=== PATIENT | female | born 1965 | race Caucasian/White ===

== ENCOUNTER 2021-03-09 08:27 | Inpatient (IN) | payer BC ==
[~2021-03-09] VITALS: Ht 160 cm; Wt 115.0 kg
[2021-03-09 09:11] LABS: HEMOGLOBIN 14.4 gm/dl (12.3-15.3); RED BLOOD COUNT 4.95 M/UL (4.00-5.10); WHITE BLOOD COUNT 5.6 K/UL (4.5-11.0)
[2021-03-09 09:32] LABS: BUN/CREATININE RATIO 18 (0-10)
[2021-03-09] MEDS ORDERED: JANUVIA 100 MG100 MG PO (10:56)
[2021-03-09] MEDS ORDERED: METFORMIN HCL1000 MG PO (10:56)
[2021-03-09] MEDS ORDERED: NORVASC10 MG PO (10:57)
[2021-03-09] MEDS ORDERED: CRESTOR5 MG PO (10:57)
[2021-03-09] MEDS ORDERED: HYDROCHLOROTHIA25 MG PO (10:57)
[2021-03-09] MEDS ORDERED: DRISDOL1250 MCG PO (10:57)
[2021-03-09] MEDS ORDERED: NITROSTAT0.4 MG SL (10:58)
[2021-03-09] MEDS ORDERED: ASPIRIN EC81 MG PO (12:51)
--- NOTE | 2021-03-09 18:54 | NUR ---
PT ARRIVED TO ICU AT 1809. MONITORING EQUIPTMENT ATTATCHET. VITALS STABLE AT THIS TIME. AC CATHETER INSERTED, PT TOLERATED WELL. NO SIGNS OF DISTRESS AT THIS TIME. WILL CONTINUE TO MONITOR.
[2021-03-10 09:45] LABS: HEMOGLOBIN 13.5 gm/dl (12.3-15.3); RED BLOOD COUNT 4.52 M/UL (4.00-5.10)
[2021-03-10 09:53] LABS: WHITE BLOOD COUNT 2.6 K/UL (4.5-11.0)
[2021-03-10 10:07] LABS: BUN/CREATININE RATIO 19 (0-10)
[2021-03-11 08:12] LABS: HEMOGLOBIN 12.8 gm/dl (12.3-15.3); RED BLOOD COUNT 4.4 M/UL (4.00-5.10)
[2021-03-11 08:16] LABS: WHITE BLOOD COUNT 3.3 K/UL (4.5-11.0)
[2021-03-11 08:31] LABS: BUN/CREATININE RATIO 23 (0-10)
[2021-03-12 07:09] LABS: HEMOGLOBIN 12.9 gm/dl (12.3-15.3); RED BLOOD COUNT 4.33 M/UL (4.00-5.10); WHITE BLOOD COUNT 3.4 K/UL (4.5-11.0)
[2021-03-12 07:32] LABS: BUN/CREATININE RATIO 22 (0-10)
[2021-03-12 13:10] LABS: ORGANISM ID Not indicated. (.); SPECIMEN SOURCE Urine (.); STREPTOCOCCUS PNEUMONIAE AG Negative (Negative)
[2021-03-13 05:00] LABS: HEMOGLOBIN 13.1 gm/dl (12.3-15.3); RED BLOOD COUNT 4.39 M/UL (4.00-5.10)
[2021-03-13 05:02] LABS: WHITE BLOOD COUNT 4.9 K/UL (4.5-11.0)
[2021-03-13 05:20] LABS: BUN/CREATININE RATIO 20 (0-10)
[2021-03-14 06:46] LABS: HEMOGLOBIN 13.5 gm/dl (12.3-15.3); RED BLOOD COUNT 4.52 M/UL (4.00-5.10); WHITE BLOOD COUNT 5.4 K/UL (4.5-11.0)
[2021-03-14 07:33] LABS: BUN/CREATININE RATIO 24 (0-10)
[2021-03-15 06:25] LABS: HEMOGLOBIN 13.9 gm/dl (12.3-15.3); RED BLOOD COUNT 4.67 M/UL (4.00-5.10); WHITE BLOOD COUNT 4.7 K/UL (4.5-11.0)
[2021-03-15 07:25] LABS: BUN/CREATININE RATIO 23 (0-10)
[2021-03-16 04:08] LABS: HEMOGLOBIN 13.3 gm/dl (12.3-15.3); RED BLOOD COUNT 4.47 M/UL (4.00-5.10); WHITE BLOOD COUNT 4.9 K/UL (4.5-11.0)
[2021-03-16 04:27] LABS: BUN/CREATININE RATIO 22 (0-10)
[2021-03-17 10:04] LABS: HEMOGLOBIN 13.8 gm/dl (12.3-15.3); RED BLOOD COUNT 4.61 M/UL (4.00-5.10)
[2021-03-17 10:06] LABS: WHITE BLOOD COUNT 7.7 K/UL (4.5-11.0)
[2021-03-17 11:16] LABS: BUN/CREATININE RATIO 21 (0-10)
[2021-03-18 05:47] LABS: HEMOGLOBIN 15.6 gm/dl (12.3-15.3)
[2021-03-18 05:55] LABS: RED BLOOD COUNT 5.1 M/UL (4.00-5.10); WHITE BLOOD COUNT 20.9 K/UL (4.5-11.0)
[2021-03-19 04:57] LABS: HEMOGLOBIN 14.9 gm/dl (12.3-15.3); RED BLOOD COUNT 4.91 M/UL (4.00-5.10); WHITE BLOOD COUNT 19.1 K/UL (4.5-11.0)
[2021-03-20 05:26] LABS: WHITE BLOOD COUNT 15.4 K/UL (4.5-11.0)
[2021-03-20 05:44] LABS: RED BLOOD COUNT 4.24 M/UL (4.00-5.10)
[2021-03-21 05:17] LABS: HEMOGLOBIN 12.3 gm/dl (12.3-15.3); RED BLOOD COUNT 4.06 M/UL (4.00-5.10); WHITE BLOOD COUNT 14.1 K/UL (4.5-11.0)
[2021-03-22 05:06] LABS: HEMOGLOBIN 10.9 gm/dl (12.3-15.3)
[2021-03-22 05:10] LABS: RED BLOOD COUNT 3.63 M/UL (4.00-5.10); WHITE BLOOD COUNT 6.6 K/UL (4.5-11.0)
[2021-03-23 05:09] LABS: HEMOGLOBIN 9.7 gm/dl (12.3-15.3)
[2021-03-23 05:10] LABS: RED BLOOD COUNT 3.24 M/UL (4.00-5.10); WHITE BLOOD COUNT 3.8 K/UL (4.5-11.0)
[2021-03-24 05:03] LABS: HEMOGLOBIN 9.3 gm/dl (12.3-15.3); RED BLOOD COUNT 3.04 M/UL (4.00-5.10); WHITE BLOOD COUNT 4.3 K/UL (4.5-11.0)
[2021-03-25 05:14] LABS: HEMOGLOBIN 8.9 gm/dl (12.3-15.3); RED BLOOD COUNT 2.92 M/UL (4.00-5.10); WHITE BLOOD COUNT 3.7 K/UL (4.5-11.0)
[2021-03-26 06:15] LABS: HEMOGLOBIN 8.5 gm/dl (12.3-15.3); RED BLOOD COUNT 2.79 M/UL (4.00-5.10); WHITE BLOOD COUNT 4.2 K/UL (4.5-11.0)
[2021-03-27 04:30] LABS: HEMOGLOBIN 8.8 gm/dl (12.3-15.3); RED BLOOD COUNT 2.87 M/UL (4.00-5.10); WHITE BLOOD COUNT 3.9 K/UL (4.5-11.0)
[2021-03-28 05:50] LABS: HEMOGLOBIN 9.4 gm/dl (12.3-15.3); RED BLOOD COUNT 3.13 M/UL (4.00-5.10)
[2021-03-28 05:56] LABS: WHITE BLOOD COUNT 5.2 K/UL (4.5-11.0)
[2021-03-29 04:55] LABS: HEMOGLOBIN 9.6 gm/dl (12.3-15.3); RED BLOOD COUNT 3.13 M/UL (4.00-5.10); WHITE BLOOD COUNT 5.3 K/UL (4.5-11.0)
--- NOTE | 2021-03-29 19:28 | NUR ---
03/29/211913 THE PT AND DAUGHTER CALLED TO CHANGE CODE STATUS FROM DNR TO FULL CODE. ORDER WAS CHANGED IN [facility] AND DR. MEMBRENO WAS NOTIFIED.
[2021-03-30 04:58] LABS: HEMOGLOBIN 9.5 gm/dl (12.3-15.3); RED BLOOD COUNT 3.12 M/UL (4.00-5.10); WHITE BLOOD COUNT 4.5 K/UL (4.5-11.0)
[2021-03-30 05:21] LABS: BUN/CREATININE RATIO 40 (0-10)
[2021-03-31 04:29] LABS: HEMOGLOBIN 9.9 gm/dl (12.3-15.3); RED BLOOD COUNT 3.21 M/UL (4.00-5.10); WHITE BLOOD COUNT 5.3 K/UL (4.5-11.0)
[2021-03-31 04:54] LABS: BUN/CREATININE RATIO 41 (0-10)
[2021-04-01 05:12] LABS: HEMOGLOBIN 9.5 gm/dl (12.3-15.3); RED BLOOD COUNT 3.18 M/UL (4.00-5.10)
[2021-04-01 05:48] LABS: BUN/CREATININE RATIO 37 (0-10)
[2021-04-02 04:11] LABS: HEMOGLOBIN 10.5 gm/dl (12.3-15.3); RED BLOOD COUNT 3.44 M/UL (4.00-5.10); WHITE BLOOD COUNT 7.7 K/UL (4.5-11.0)
[2021-04-02 04:30] LABS: BUN/CREATININE RATIO 46 (0-10)
--- NOTE | 2021-04-02 07:39 | NUR ---
UPDATED DR. LAWSON ON PATIENT VENT SETTINGS. FiO2 IS 80% AND PEEP OF 14. DR. LAWSON SAID HE WOULD RESCHEDULE THE TRACH PLACEMENT TO A LATER DATE DUE TO HIGH VENT SETTINGS.
[2021-04-03 05:11] LABS: HEMOGLOBIN 8.9 gm/dl (12.3-15.3)
[2021-04-03 05:28] LABS: BUN/CREATININE RATIO 38 (0-10); RED BLOOD COUNT 2.96 M/UL (4.00-5.10); WHITE BLOOD COUNT 5.4 K/UL (4.5-11.0)
[2021-04-03 17:08] LABS: HEPARIN INDUCED PLATELET AB 0.181 OD (0.000-0.400)
[2021-04-04 03:36] LABS: HEMOGLOBIN 10.7 gm/dl (12.3-15.3)
[2021-04-04 03:40] LABS: RED BLOOD COUNT 3.52 M/UL (4.00-5.10); WHITE BLOOD COUNT 8.7 K/UL (4.5-11.0)
[2021-04-04 04:00] LABS: BUN/CREATININE RATIO 34 (0-10)
--- NOTE | 2021-04-04 11:24 | NUR ---
PATIENT IS BEING CONSIDERED FOR TRACH PLACEMENT TODAY BUT NOT CERTAIN YET. DR. MEMBRENO ORDERED TO MAINTIAN NPO STATUS AND HOLD BLOOD THINNERS UNTIL DECISION IS MADE.
[2021-04-05 07:50] LABS: HEMOGLOBIN 8.8 gm/dl (12.3-15.3); WHITE BLOOD COUNT 8.2 K/UL (4.5-11.0)
[2021-04-05 07:52] LABS: RED BLOOD COUNT 2.93 M/UL (4.00-5.10)
[2021-04-05 08:15] LABS: BUN/CREATININE RATIO 34 (0-10)
--- NOTE | 2021-04-05 09:24 | NUR ---
DR. MEMBRENO MADE AWARE OF PATINET LOW BLOOD PRESSURE 08:45 OF 86/47(55). NADJA MEMBRENO ORDERED TO START VERSED AND REMAIN ON ALL OTHER SEDATIONS CURRENTLY BEING USED AND TO BEGIN TO TITRATE DOWN ON THE PRECEDEX AND TITRATE DOWN ON THE ZEMURON. LEVOPHED ORDERED FOR LOW BLOOD PRESSURE AND HAS BEEN INITIATED. ALL OTHER ORDERS FROM DR. MEMBRENO HAS BEEN INITIATED.
[2021-04-06 06:18] LABS: HEMOGLOBIN 8.9 gm/dl (12.3-15.3); RED BLOOD COUNT 2.89 M/UL (4.00-5.10); WHITE BLOOD COUNT 7.3 K/UL (4.5-11.0)
[2021-04-06 06:45] LABS: BUN/CREATININE RATIO 33 (0-10)
[2021-04-07 04:51] LABS: HEMOGLOBIN 8.7 gm/dl (12.3-15.3); RED BLOOD COUNT 2.82 M/UL (4.00-5.10); WHITE BLOOD COUNT 6.1 K/UL (4.5-11.0)
[2021-04-07 05:02] LABS: BUN/CREATININE RATIO 39 (0-10)
[2021-04-08 07:00] LABS: BUN/CREATININE RATIO 34 (0-10)
[2021-04-08 08:55] LABS: HEMOGLOBIN 8.7 gm/dl (12.3-15.3); RED BLOOD COUNT 2.83 M/UL (4.00-5.10); WHITE BLOOD COUNT 5.3 K/UL (4.5-11.0)
[2021-04-09 05:52] LABS: HEMOGLOBIN 9.6 gm/dl (12.3-15.3); WHITE BLOOD COUNT 6.4 K/UL (4.5-11.0)
[2021-04-09 06:28] LABS: BUN/CREATININE RATIO 41 (0-10)
[2021-04-09 06:31] LABS: RED BLOOD COUNT 3.18 M/UL (4.00-5.10)
[2021-04-10 04:50] LABS: HEMOGLOBIN 9.1 gm/dl (12.3-15.3); RED BLOOD COUNT 2.97 M/UL (4.00-5.10)
[2021-04-10 05:02] LABS: BUN/CREATININE RATIO 48 (0-10)
[2021-04-11 10:38] LABS: HEMOGLOBIN 8.7 gm/dl (12.3-15.3); RED BLOOD COUNT 2.88 M/UL (4.00-5.10)
[2021-04-11 10:39] LABS: WHITE BLOOD COUNT 9.2 K/UL (4.5-11.0)
[2021-04-11 11:17] LABS: BUN/CREATININE RATIO 54 (0-10)
[2021-04-11 15:11] LABS: HEMATOCRIT 27.7 % (34.0-46.6)
[2021-04-12 05:44] LABS: HEMOGLOBIN 7.4 gm/dl (12.3-15.3); WHITE BLOOD COUNT 7.4 K/UL (4.5-11.0)
[2021-04-12 05:48] LABS: RED BLOOD COUNT 2.48 M/UL (4.00-5.10)
[2021-04-12 06:14] LABS: BUN/CREATININE RATIO 54 (0-10)
--- NOTE | 2021-04-13 00:08 | NUR ---
04/12/21 23:38 PATIENT O2 DESATED TO 80% SUCTION COMPLETED, PATIENT OVERBREATHING VENT, INCREASED SEDATION VIA PROPER TITRATION, PATIKIMBERLEE IS CURRENTLY SEDATED WITH O2 SATURATION OF 93%
--- NOTE | 2021-04-13 04:03 | NUR ---
04/13/2021 0300 patient desated with O2 @ 77, patient restless and waking, titrated diprivan appropriately, patient O2 stablized, diprivan currently @ 80, patient resting comfortably
[2021-04-13 06:11] LABS: BUN/CREATININE RATIO 70 (0-10)
[2021-04-13] MEDS ORDERED: CATAPRES 0.1MG0.1 MG PO (09:26)
[2021-04-13] MEDS ORDERED: PROTONIX 40 MG40 MG NG (09:26)
[2021-04-13] MEDS ORDERED: POLYETHYLENE GL17 GM PO (09:26)
[2021-04-13] MEDS ORDERED: LISINOPRIL20 MG PO (09:26)
[2021-04-13] MEDS ORDERED: IPRAT-ALBUT 0.5-3 ML NEB (09:26)
[2021-04-13] MEDS ORDERED: HUMALOG 10100 UNITS/ SC (09:26)
[2021-04-13] MEDS ORDERED: BUDESONIDE0.5 MG/2 M NEB (09:26)
[2021-04-13] MEDS ORDERED: AMLODIPINE BESY10 MG PO (09:26)
[2021-04-13 09:58] LABS: HEMOGLOBIN 7.6 gm/dl (12.3-15.3); RED BLOOD COUNT 2.59 M/UL (4.00-5.10); WHITE BLOOD COUNT 6.2 K/UL (4.5-11.0)
--- NOTE | 2021-04-14 00:50 | NUR ---
rolled patient, desat to 81% suctioned with no output and no change in saturation, placed patient on left side and saturation returned to 90%
[2021-04-14 06:12] LABS: BUN/CREATININE RATIO 49 (0-10)
[2021-04-14 07:17] LABS: HEMOGLOBIN 7.5 gm/dl (12.3-15.3); RED BLOOD COUNT 2.57 M/UL (4.00-5.10); WHITE BLOOD COUNT 5.7 K/UL (4.5-11.0)
--- NOTE | 2021-04-15 01:27 | NUR ---
UNABLE TO TURN PATIENT, PATIENT IS TO UNSTABLE TO TURN
--- NOTE | 2021-04-15 01:30 | NUR ---
04/15/21 0000 PT DESAT TO 70%, SUCTION TRACH AND ORAL CAVITY WITH NO IMPROVEMENT, REPOSITIONED PATIENT WITH NO IMPROVEMENT DR ELLINGTON NOTIFIED BY LYNETTE, RN NEW ORDER FOR PEEP OF 14, ANSELMO RT PRESENT AND ADJUST PEEP PATIENT SHOWING IMPROVEMENT IN OXYGEN SATURATION
--- NOTE | 2021-04-15 01:33 | NUR ---
PATIENT HEART ELEVATED TO 113, LOPRESSOR WHICH WAS HEAL 04/14/21 @2100 GIVEN FOR RATE CONTROL
--- NOTE | 2021-04-15 01:43 | NUR ---
PATIENT O2 SATURATION HAS DECREASED, ETCO2 INCREASED DR ELLINGTON AND DR CHAVIRA NOTIFIED, DR CHAVIRA REQUESTED CALL TO FAMILY AND NOTIFY THAT THERE IS NOTHING ELSE WE CAN DO FOR THE PATIENT, CALL PATIENT SPOUSE ZIGGY AND NOTIFIED OF SITUATION, NOTIFIED THAT DR CHAVIRA HAS STATED THERE IS NOTHING ELSE WE CAN DO FOR THE PATIENT, SPOUSE STATES HE WANTS TO HAVE PATIENT CONTINUE A FULL CODE
[2021-04-15 05:48] LABS: HEMOGLOBIN 8.5 gm/dl (12.3-15.3); RED BLOOD COUNT 2.81 M/UL (4.00-5.10); WHITE BLOOD COUNT 11.5 K/UL (4.5-11.0)
[2021-04-15 06:34] LABS: BUN/CREATININE RATIO 36 (0-10)
[2021-04-16 05:50] LABS: RED BLOOD COUNT 2.87 M/UL (4.00-5.10)
[2021-04-16 05:58] LABS: WHITE BLOOD COUNT 31.9 K/UL (4.5-11.0)
[2021-04-16 06:02] LABS: BUN/CREATININE RATIO 29 (0-10)
--- NOTE | 2021-04-17 12:58 | NUR ---
1130 family wish to make make patient comfort care. asking to dc all drips and keep patient on vent until pt passses. md aware orders noted
== END 2021-04-17 12:06 | disposition expired | DRG 4 ==
LOC: ER1 08:27 → CDU 10:10 → CCU 10:10
PROVIDERS: Emergency Medicine; Family Medicine; Internal Medicine; Internal Medicine Nephrology; Internal Medicine Pulmonary Disease; Physician Assistant; ADMIT Internal Medicine
PROC: 3E033XZ Introduction of Vasopressor into Peripheral Vein, Percutaneous Approach (ICD-10-PCS; principal; 2021-03-09)
PROC: XW033E5 Introduction of Remdesivir Anti-infective into Peripheral Vein, Percutaneous Approach, New Technology Group 5 (ICD-10-PCS; 2021-03-09)
PROC: XW033H5 Introduction of Tocilizumab into Peripheral Vein, Percutaneous Approach, New Technology Group 5 (ICD-10-PCS; 2021-03-09)
PROC: 3E0333Z Introduction of Anti-inflammatory into Peripheral Vein, Percutaneous Approach (ICD-10-PCS; 2021-03-09)
PROC: 5A09557 Assistance with Respiratory Ventilation, Greater than 96 Consecutive Hours, Continuous Positive Airway Pressure (ICD-10-PCS; 2021-03-09)
PROC: 5A0935A Assistance with Respiratory Ventilation, Less than 24 Consecutive Hours, High Flow/Velocity Cannula (ICD-10-PCS; 2021-03-09)
PROC: 5A09557 Assistance with Respiratory Ventilation, Greater than 96 Consecutive Hours, Continuous Positive Airway Pressure (ICD-10-PCS; 2021-03-09)
PROC: 8E0ZXY6 Isolation (ICD-10-PCS; 2021-03-11)
PROC: 5A1955Z Respiratory Ventilation, Greater than 96 Consecutive Hours (ICD-10-PCS; 2021-03-17)
PROC: 0BH17EZ Insertion of Endotracheal Airway into Trachea, Via Natural or Artificial Opening (ICD-10-PCS; 2021-03-17)
PROC: 02HV33Z Insertion of Infusion Device into Superior Vena Cava, Percutaneous Approach (ICD-10-PCS; 2021-03-19)
PROC: B548ZZA Ultrasonography of Superior Vena Cava, Guidance (ICD-10-PCS; 2021-03-19)
PROC: 0B113F4 Bypass Trachea to Cutaneous with Tracheostomy Device, Percutaneous Approach (ICD-10-PCS; 2021-04-05)
PROC: 0DJ68ZZ Inspection of Stomach, Via Natural or Artificial Opening Endoscopic (ICD-10-PCS; 2021-04-05)
PROC: 0DH63UZ Insertion of Feeding Device into Stomach, Percutaneous Approach (ICD-10-PCS; 2021-04-05)
PROC: 3E0G76Z Introduction of Nutritional Substance into Upper GI, Via Natural or Artificial Opening (ICD-10-PCS; 2021-04-05)
PROC: 0BJ08ZZ Inspection of Tracheobronchial Tree, Via Natural or Artificial Opening Endoscopic (ICD-10-PCS; 2021-04-05)
DX: A41.89 Other specified sepsis (principal); J95.811 Postprocedural pneumothorax; U07.1 COVID-19; J12.82 Pneumonia due to coronavirus disease 2019; J80 Acute respiratory distress syndrome; J15.1 Pneumonia due to Pseudomonas; G93.41 Metabolic encephalopathy; R65.21 Severe sepsis with septic shock; N17.0 Acute kidney failure with tubular necrosis; J95.859 Other complication of respirator [ventilator]; J94.8 Other specified pleural conditions; E87.1 Hypo-osmolality and hyponatremia; Z99.11 Dependence on respirator [ventilator] status; N17.9 Acute kidney failure, unspecified; Z68.41 Body mass index [BMI] 40.0-44.9, adult; M62.82 Rhabdomyolysis; E66.2 Morbid (severe) obesity with alveolar hypoventilation; Z66 Do not resuscitate; Z51.5 Encounter for palliative care; I10 Essential (primary) hypertension; D69.6 Thrombocytopenia, unspecified; D64.9 Anemia, unspecified; E87.6 Hypokalemia; I25.10 Atherosclerotic heart disease of native coronary artery without angina pectoris; E87.5 Hyperkalemia; T38.0X5A Adverse effect of glucocorticoids and synthetic analogues, initial encounter; E11.65 Type 2 diabetes mellitus with hyperglycemia; R53.81 Other malaise; D72.828 Other elevated white blood cell count; Z90.710 Acquired absence of both cervix and uterus; Z87.59 Personal history of other complications of pregnancy, childbirth and the puerperium; Z79.4 Long term (current) use of insulin; Z91.013 Allergy to seafood; Z99.81 Dependence on supplemental oxygen; Z93.0 Tracheostomy status; Z79.01 Long term (current) use of anticoagulants; Z79.82 Long term (current) use of aspirin; Z99.2 Dependence on renal dialysis; Z23 Encounter for immunization
CPT/HCPCS: 31500; 36415; 36600; 70450; 71045; 80048; 80053; 80202; 81001; 82550; 82553; 82565; 82570; 82607; 82728; 82746; 82747; 82803; 82962; 83036; 83540; 83550; 83605; 83615; 83735; 83874; 83880; 84100; 84132; 84133; 84156; 84300; 84484; 85007; 85025; 85027; 85379; 85384; 85610; 85652; 85730; 86140; 87015; 87040; 87070; 87077; 87081; 87086; 87116; 87186; 87205; 87206; 87278; 87899; 89050; 93005; 93970; 94002; 94003; 94640; 94660; 94760; 96374; 96375; 99285; A6212; C1769; C9113; J0330; J0360; J0696; J1100; J1650; J1940; J1956; J2020; J2185; J2248; J2250; J2270; J2370; J2405; J2543; J2704; J3010; J3370; J3480; J7030; J7040; J7050; J7070; J7120; P9047; Q0249; Q9967; U0002